=== PATIENT | female | born 1960 ===

== ENCOUNTER 2023-06-05 10:10 | Outpatient (CLI) | payer MEDICARE, SELFPAY | END 2023-06-05 10:11 | disposition home or self-care (01) | LOC: LABBT 10:10 | PROVIDERS: ATTEND Student in an Organized Health Care Education/Training Program | DX: Z01.818 Encounter for other preprocedural examination (principal); I25.10 Atherosclerotic heart disease of native coronary artery without angina pectoris | CPT/HCPCS: 71046 ==

== ENCOUNTER 2023-06-05 10:30 | Inpatient (IN) | payer MEDICARE ==
[2023-06-05 12:30] LABS: Mean Corpuscular HGB CONC 34.1 g/dL (32.0-36.0); Mean Corpuscular Hemoglobin 27.9 pg (27.0-33.0); Mean Corpuscular Volume 81.8 fl (81.6-98.3); Mean Platelet Volume 9.8 fl (7.4-10.4); Platelet Count 335 10x3/uL (150-450); RBC Distribution Width 12.2 % (11.5-14.5); Red Blood Cell (RBC) Count 5.01 10x6/uL (3.90-5.03); White Blood Cell (WBC) Count 6.7 10x3/uL (3.5-10.5)
[2023-06-05 12:37] LABS: INR-International Normal Ratio 0.9; PTT 26.9 sec (22.0-33.0); Prothrombin Time 9.8 sec (9.5-12.1)
[2023-06-05 12:38] LABS: Anion Gap 19 mmol/L (10-20); BUN (Urea Nitrogen) 22 mg/dL (9.8-20.1); Calc. Creatinine Clearance 0 mL/min (70-130); Carbon Dioxide 25 mmol/L (23-31); Chloride 96 mmol/L (98-107); Estimated GFR 49; Glucose 301 mg/dL (80-115); Potassium 4.5 mmol/L (3.5-5.1); Sodium 135 mmol/L (136-145)
[2023-06-08] MEDS ORDERED: EPINEPHrine 1 MG/ML VIAL ONE (08:55)
[2023-06-08] MEDS ORDERED: Dexamethasone 4 mg/ml Vial ONE (08:55)
[2023-06-08] MEDS ORDERED: PHENYLEPHRINE-NS 100 MCG/ML 10 ML SYRINGE ONE ×2 (08:55→09:50)
[2023-06-08] MEDS ORDERED: Bupivacaine PF 0.5% 30 ML VIAL ONE (08:55)
[2023-06-08] MEDS ORDERED: Albumin 5% 500 ML ONE (08:55)
[2023-06-08] MEDS ORDERED: Heparin 10,000 UNITS/1 ML VIAL 30,000 UNITS in Sodium Chloride 0.9% 1,000 ML FS SCH (09:15)
[2023-06-08] MEDS ORDERED: Fentanyl 250 MCG/5 ML VIAL ONE (09:43)
[2023-06-08] MEDS ORDERED: Midazolam HCl 5 mg/ml Vial ONE (09:43)
[2023-06-08] MEDS ORDERED: Insulin Regular 300 UNITS/3 ML VIAL ONE (09:44)
[2023-06-08] MEDS ORDERED: Aminocaproic Acid 5 GM/20 ML VIAL ONE ×2 (09:44→09:50)
[2023-06-08] MEDS ORDERED: Rocuronium Bromide 50 MG/5 ML VIAL ONE (09:44)
[2023-06-08] MEDS ORDERED: Thrombin 5000 UNITS/5 ML VIAL ONE (09:50)
[2023-06-08] MEDS ORDERED: Heparin 5,000 UNITS/ML VIAL ONE (09:50)
[2023-06-08] MEDS ORDERED: Cardioplegic Soln 1,000 ML BAG ONE (09:50)
[2023-06-08] MEDS ORDERED: Papaverine 60 MG/2 ML VIAL ONE (09:50)
[2023-06-08] MEDS ORDERED: Lidocaine 1% PF 5 ML VIAL ONE (09:50)
[2023-06-08] MEDS ORDERED: Calcium Chloride 1 GM/10 ML Abboject SYRINGE ONE (09:50)
[2023-06-08] MEDS ORDERED: Heparin 30,000 units/30 ml VIAL ONE (09:50)
[2023-06-08] MEDS ORDERED: Lidocaine 2% PF 100 mg/5 ml Syringe ONE (09:50)
[2023-06-08] MEDS ORDERED: Mannitol 12.5 GM/50 ML ONE (09:50)
[2023-06-08] MEDS ORDERED: Vancomycin 1 GM VIAL ONE (09:50)
[2023-06-08] MEDS ORDERED: Potassium Chloride 60 MEQ/30 ML VIAL ONE (09:50)
[2023-06-08] MEDS ORDERED: Rocuronium Bromide 10 MG/ML (10ML VIAL) ONE (09:50)
[2023-06-08] MEDS ORDERED: Protamine Sulfate 250 MG/25 ML VIAL ONE (09:50)
[2023-06-08] MEDS ORDERED: Magnesium 5 GM/10 ML VIAL ONE (09:50)
[2023-06-08] MEDS ORDERED: PROPOFOL 200 MG/20 ML VIAL ONE (09:50)
[2023-06-08] MEDS ORDERED: Sodium Bicarb 50 MEQ/50 ML VIAL ONE (09:50)
[2023-06-08] MEDS ORDERED: Acetaminophen 325 MG TAB PO PRN (14:16)
[2023-06-08] MEDS ORDERED: Mag-Al 1200 mg/1200 mg/30 ML UDCUP PO PRN (14:16)
[2023-06-08] MEDS ORDERED: Ondansetron PF 4 MG/2 ML Vial IVP PRN (14:16)
[2023-06-08] MEDS ORDERED: fentaNYL 50 mcg/mL 1 mL Vial SLOW IVP PRN ×2 (14:16)
[2023-06-08] MEDS ORDERED: Bisacodyl 10 MG SUPP PR PRN (14:16)
[2023-06-08] MEDS ORDERED: hydrALAZINE 20 MG/ML VIAL SLOW IVP PRN (14:16)
[2023-06-08] MEDS ORDERED: HYDROcodone/Acetaminophen 5/325 mg Tablet PO PRN ×2 (14:16)
[2023-06-08] MEDS ORDERED: Guaifenesin DM 100-10/5 ML UDCUP PO PRN (14:16)
[2023-06-08] MEDS ORDERED: Post-Op Insulin Drip Protocol IVPB ONE (14:16)
[2023-06-08] MEDS ORDERED: Promethazine HCl 25 MG/ML VIAL IM PRN (14:16)
[2023-06-08] MEDS ORDERED: Bisacodyl 5 MG TAB PO PRN (14:16)
[2023-06-08] MEDS ORDERED: Magnesium 2 GM/50 ML(in water) 2 GM in Premix 1 BAG IVPB SCH (14:30)
[2023-06-08] MEDS ORDERED: HUMULIN R 100 UNITS in Sodium Chloride 0.9% 100 ML IVPB SCH (14:30)
[2023-06-08] MEDS ORDERED: Dextrose 5% in Water 1,000 ML IV PRN (14:30)
[2023-06-08] MEDS ORDERED: Dextrose 50% Abboject 50 ML SYRINGE SLOW IVP PRN (14:30)
[2023-06-08] MEDS ORDERED: Glucagon 1 MG/ML KIT SC PRN (14:30)
[2023-06-08 14:49] LABS: Actual Bicarbonate (HCO3a) 17.7 mEq/L (22-28); Base Excess (BEa) -5.5 mEq/L (-2.0 to +3.0); Calcium, Ionized (arterial) 1.08 mmol/L (1.12-1.30); Carboxyhemoglobin (COHb) 0.3 gm% (0.0-3.0); Hematocrit-ABG 36 % (36.0-47.0); Hemoglobin (Hb) 12.2 g/dL (12.0-16.0); O2 Tension (PaO2), arterial 264.5 mmHg (> 80.0); Potassium - ABG Lab 3.37 mmol/L (3.70-5.30); pH, Arterial 7.418 (7.35-7.45)
[2023-06-08 14:50] LABS: Puncture Site Arterial Line
[2023-06-08] MEDS ORDERED: NOREPINEPHRINE 8 MG/250 ML-D5W 250 ML ONE (14:52)
[2023-06-08] MEDS: NS 0.9% w/ 20 MEQ KCL 1,000 ML IV SCH ×2 (15:02→23:52)
[2023-06-08] MEDS: CEFAZOLIN 2 GM in Sodium Chloride 0.9% 100 ML IVPB SCH ×2 (15:02→21:31)
[2023-06-08] MEDS: Morphine 2 MG/ML VIAL SLOW IVP PRN ×2 (15:04→16:38)
[2023-06-08 15:13] LABS: INR-International Normal Ratio 1.2; Prothrombin Time 15.9 sec (12.0-14.7)
[2023-06-08 15:14] LABS: #Eosinphils 0.2 thou/uL (0.0-0.7); #Monocytes 0.8 thou/uL (0.11-0.59); #Neutrophils 8.4 thou/uL (1.40-6.50); %Basophils 0.4 % (0.0-1.0); %Eosinophils 1.7 % (0.0-10.0); %Lymphocytes 16.4 % (21.0-51.0); %Neutrophils 73.4 % (42.0-75.0); Hematocrit 33.4 % (36.0-47.0); Hemoglobin 11.8 g/dL (12.0-16.0); Mean Corpuscular HGB CONC 35.3 g/dL (32.0-36.0); Mean Corpuscular Volume 82.1 fl (78.0-98.0); Mean Platelet Volume 9.7 fL (7.4-10.4); Platelet Count 181 10x3/uL (130-400); RBC Distribution Width 12.5 % (11.5-14.5); Red Blood Cell (RBC) Count 4.07 mill/uL (4.20-5.40); White Blood Cell (WBC) Count 11.4 10x3/uL (4.8-10.8)
[2023-06-08 15:18] LABS: Anion Gap 13 mmol/L (10-20); BUN (Urea Nitrogen) 23 mg/dL (9.8-20.1); Calc. Creatinine Clearance 55 mL/min (70-130); Calcium 7.9 mg/dL (7.8-10.44); Carbon Dioxide 18 mmol/L (23-31); Chloride 109 mmol/L (98-107); Estimated GFR 81; Glucose 211 mg/dL (80-115); Potassium 3.4 mmol/L (3.5-5.1)
[2023-06-08] MEDS ORDERED: NOREPINEPHRINE 8 MG/250 ML-D5W 250 ML IVPB SCH (15:30)
[2023-06-08 15:39] LABS: Sodium 137 mmol/L (136-145)
[2023-06-08] MEDS: Potassium Chloride 20 MEQ/100 ML PREMIX BAG IVPB PRN ×2 (15:58→21:26)
[2023-06-08] MEDS: Ketorolac Tromethamine 30 MG/ML VIAL IVP SCH ×2 (16:39→23:07)
[2023-06-08] MEDS: Aspirin 325 MG TAB PO SCH (17:41)
[2023-06-08 20:36] LABS: Hematocrit 29.8 % (36.0-47.0); Hemoglobin 10.4 g/dL (12.0-16.0)
[2023-06-08 20:57] LABS: Potassium 3.6 mmol/L (3.5-5.1)
[2023-06-08] MEDS: Famotidine/PF 20 mg/2ml Vial SLOW IVP SCH (21:21)
[2023-06-08 22:13] LABS: Actual Bicarbonate (HCO3a) 16.8 mEq/L (22-28); Base Excess (BEa) -5.5 mEq/L (-2.0 to +3.0); Calcium, Ionized (arterial) 1.09 mmol/L (1.12-1.30); Carboxyhemoglobin (COHb) 0.3 gm% (0.0-3.0); Hematocrit-ABG 32 % (36.0-47.0); O2 Tension (PaO2), arterial 225.6 mmHg (> 80.0); Potassium - ABG Lab 4.47 mmol/L (3.70-5.30); pH, Arterial 7.465 (7.35-7.45)
[2023-06-08 22:14] LABS: Puncture Site ALINE
[2023-06-09 04:31] LABS: #Monocytes 0.8 thou/uL (0.11-0.59); #Neutrophils 7.4 thou/uL (1.40-6.50); %Basophils 0.1 % (0.0-1.0); %Eosinophils 0.1 % (0.0-10.0); %Lymphocytes 6.7 % (21.0-51.0); %Monocytes 8.6 % (0.0-10.0); Hematocrit 28.4 % (36.0-47.0); Hemoglobin 9.7 g/dL (12.0-16.0); Mean Corpuscular HGB CONC 34.2 g/dL (32.0-36.0); Mean Corpuscular Hemoglobin 28.6 pg (27.0-31.0); Mean Corpuscular Volume 83.8 fl (78.0-98.0); Mean Platelet Volume 9.9 fL (7.4-10.4); Platelet Count 165 10x3/uL (130-400); RBC Distribution Width 13.1 % (11.5-14.5); Red Blood Cell (RBC) Count 3.39 mill/uL (4.20-5.40); White Blood Cell (WBC) Count 8.8 10x3/uL (4.8-10.8)
[2023-06-09 04:51] LABS: Anion Gap 12 mmol/L (10-20); BUN (Urea Nitrogen) 20 mg/dL (9.8-20.1); Calc. Creatinine Clearance 60 mL/min (70-130); Calcium 7.9 mg/dL (7.8-10.44); Carbon Dioxide 20 mmol/L (23-31); Chloride 112 mmol/L (98-107); Estimated GFR 90; Glucose 99 mg/dL (80-115); Potassium 4.3 mmol/L (3.5-5.1); Sodium 140 mmol/L (136-145)
[2023-06-09] MEDS: Ketorolac Tromethamine 30 MG/ML VIAL IVP SCH ×4 (05:14→23:32)
[2023-06-09] MEDS: CEFAZOLIN 2 GM in Sodium Chloride 0.9% 100 ML IVPB SCH (06:40)
[2023-06-09] MEDS: Insulin Regular 300 UNITS/3 ML VIAL SC PRN (07:49)
[2023-06-09] MEDS: Famotidine/PF 20 mg/2ml Vial SLOW IVP SCH (08:42)
[2023-06-09] MEDS: Heparin 5,000 UNITS/ML VIAL SC SCH ×3 (08:44→21:23)
[2023-06-09] MEDS: Magnesium 2 GM/50 ML(in water) 2 GM in Premix 1 BAG IVPB SCH (09:10)
[2023-06-09] MEDS ORDERED: Insulin Glargine 30 UNITS/0.3 ML VIAL SC SCH (13:45)
[2023-06-09] MEDS: Aspirin 325 MG TAB PO SCH (18:19)
[2023-06-09] MEDS: Famotidine 20 MG TAB PO SCH (21:24)
[2023-06-09] MEDS: Atorvastatin Calcium 40 MG TAB PO SCH (21:24)
[2023-06-10 05:11] LABS: #Eosinphils 0.1 thou/uL (0.0-0.7); #Monocytes 1.2 thou/uL (0.11-0.59); #Neutrophils 6.5 thou/uL (1.40-6.50); %Basophils 0.3 % (0.0-1.0); %Eosinophils 0.6 % (0.0-10.0); %Lymphocytes 21.3 % (21.0-51.0); %Monocytes 11.9 % (0.0-10.0); %Neutrophils 65.6 % (42.0-75.0); Hematocrit 26.8 % (36.0-47.0); Hemoglobin 8.9 g/dL (12.0-16.0); Mean Corpuscular HGB CONC 33.2 g/dL (32.0-36.0); Mean Corpuscular Hemoglobin 28.5 pg (27.0-31.0); Mean Corpuscular Volume 85.9 fl (78.0-98.0); Mean Platelet Volume 10.7 fL (7.4-10.4); Platelet Count 171 10x3/uL (130-400); RBC Distribution Width 13.5 % (11.5-14.5); Red Blood Cell (RBC) Count 3.12 mill/uL (4.20-5.40); White Blood Cell (WBC) Count 9.9 10x3/uL (4.8-10.8)
[2023-06-10 05:33] LABS: Anion Gap 12 mmol/L (10-20); BUN (Urea Nitrogen) 16 mg/dL (9.8-20.1); Calc. Creatinine Clearance 57 mL/min (70-130); Calcium 8.4 mg/dL (7.8-10.44); Carbon Dioxide 22 mmol/L (23-31); Chloride 108 mmol/L (98-107); Estimated GFR 86; Glucose 97 mg/dL (80-115); Potassium 4.4 mmol/L (3.5-5.1); Sodium 138 mmol/L (136-145)
[2023-06-10] MEDS: Ketorolac Tromethamine 30 MG/ML VIAL IVP SCH ×3 (06:27→16:13)
[2023-06-10] MEDS: Magnesium 2 GM/50 ML(in water) 2 GM in Premix 1 BAG IVPB SCH (08:21)
[2023-06-10] MEDS: Heparin 5,000 UNITS/ML VIAL SC SCH ×3 (08:31→21:43)
[2023-06-10] MEDS: Famotidine 20 MG TAB PO SCH ×2 (08:32→21:43)
[2023-06-10 11:12] VITALS: BMI 22.7
[2023-06-10] MEDS: Aspirin 325 MG TAB PO SCH (16:13)
[2023-06-10] MEDS: Atorvastatin Calcium 40 MG TAB PO SCH (21:42)
[2023-06-11] MEDS: Ketorolac Tromethamine 30 MG/ML VIAL IVP SCH ×4 (01:02→17:40)
[2023-06-11 04:56] LABS: #Eosinphils 0.1 thou/uL (0.0-0.7); #Monocytes 0.8 thou/uL (0.11-0.59); %Basophils 0.1 % (0.0-1.0); %Eosinophils 1.5 % (0.0-10.0); %Lymphocytes 21.9 % (21.0-51.0); %Neutrophils 65.8 % (42.0-75.0); Hematocrit 25.4 % (36.0-47.0); Hemoglobin 8.4 g/dL (12.0-16.0); Mean Corpuscular HGB CONC 33.1 g/dL (32.0-36.0); Mean Corpuscular Hemoglobin 28.1 pg (27.0-31.0); Mean Corpuscular Volume 84.9 fl (78.0-98.0); Mean Platelet Volume 10.3 fL (7.4-10.4); Platelet Count 161 10x3/uL (130-400); Red Blood Cell (RBC) Count 2.99 mill/uL (4.20-5.40); White Blood Cell (WBC) Count 7.6 10x3/uL (4.8-10.8)
[2023-06-11 05:32] LABS: Anion Gap 12 mmol/L (10-20); BUN (Urea Nitrogen) 19 mg/dL (9.8-20.1); Calc. Creatinine Clearance 60 mL/min (70-130); Calcium 8.5 mg/dL (7.8-10.44); Carbon Dioxide 24 mmol/L (23-31); Chloride 108 mmol/L (98-107); Estimated GFR 78; Glucose 227 mg/dL (80-115); Potassium 4.7 mmol/L (3.5-5.1); Sodium 139 mmol/L (136-145)
[2023-06-11] MEDS: Insulin Regular 300 UNITS/3 ML VIAL SC PRN ×3 (06:20→20:55)
[2023-06-11] MEDS ORDERED: Furosemide 40 MG/4 ML VIAL SLOW IVP SCH (08:30)
[2023-06-11] MEDS: Heparin 5,000 UNITS/ML VIAL SC SCH ×3 (08:51→20:55)
[2023-06-11] MEDS: Famotidine 20 MG TAB PO SCH ×2 (08:51→20:54)
[2023-06-11] MEDS ORDERED: Magnesium Sulfate 4 GM in Sodium Chloride 0.9% 250 ML 250 ML IVPB SCH (11:15)
[2023-06-11] MEDS ORDERED: Magnesium Sulfate In Water 4 GM in Premix 1 BAG IVPB SCH (11:30)
[2023-06-11] MEDS ORDERED: DULoxetine 30 MG CAP PO SCH (12:00)
[2023-06-11] MEDS: Aspirin 325 MG TAB PO SCH (17:40)
[2023-06-11] MEDS: Ivabradine 5 MG TAB PO SCH (20:54)
[2023-06-11] MEDS: Atorvastatin Calcium 40 MG TAB PO SCH (20:54)
[2023-06-11] MEDS ORDERED: Metoprolol Tartrate 25 MG TAB PO SCH (21:00)
[2023-06-12] MEDS ORDERED: DULoxetine 30 MG CAP PO SCH (09:00)
[2023-06-12] MEDS ORDERED: Potassium Chloride 20 MEQ TAB PO SCH ×2 (09:07→09:30)
[2023-06-12] MEDS ORDERED: Furosemide 20 MG TAB PO SCH ×2 (09:07→09:30)
[2023-06-12] MEDS: Ivabradine 5 MG TAB PO SCH (09:29)
[2023-06-12] MEDS: Heparin 5,000 UNITS/ML VIAL SC SCH (09:30)
[2023-06-12] MEDS: Famotidine 20 MG TAB PO SCH (09:30)
[2023-06-12 10:22] LABS: CO2 Tension 23.9 mmHg (35.0-45.0)
[2023-06-12 12:01] VITALS: TEMP 98.4
[2023-06-12 12:05] VITALS: BP 112/55
[2023-06-13] MEDS ORDERED: Potassium Chloride 20 MEQ TAB PO SCH (08:00)
[2023-06-13] MEDS ORDERED: Furosemide 20 MG TAB PO SCH ×2 (09:00)
== END 2023-06-12 14:00 | disposition home or self-care (01) | DRG 236 ==
LOC: SURG A 06-08 07:07 → CCU 06-08 14:18 → 2NO 06-10 14:04
PROVIDERS: ADMIT Student in an Organized Health Care Education/Training Program; ATTEND Student in an Organized Health Care Education/Training Program
PROC: 02100Z9 Bypass Coronary Artery, One Artery from Left Internal Mammary, Open Approach (ICD-10-PCS; principal; 2023-06-08)
PROC: 021209W Bypass Coronary Artery, Three Arteries from Aorta with Autologous Venous Tissue, Open Approach (ICD-10-PCS; 2023-06-08)
PROC: 06BP4ZZ Excision of Right Saphenous Vein, Percutaneous Endoscopic Approach (ICD-10-PCS; 2023-06-08)
PROC: 06BQ0ZZ Excision of Left Saphenous Vein, Open Approach (ICD-10-PCS; 2023-06-08)
PROC: 5A1221Z Performance of Cardiac Output, Continuous (ICD-10-PCS; 2023-06-08)
PROC: 02L70CK Occlusion of Left Atrial Appendage with Extraluminal Device, Open Approach (ICD-10-PCS; 2023-06-08)
PROC: 02H633Z Insertion of Infusion Device into Right Atrium, Percutaneous Approach (ICD-10-PCS; 2023-06-08)
PROC: 30233N1 Transfusion of Nonautologous Red Blood Cells into Peripheral Vein, Percutaneous Approach (ICD-10-PCS; 2023-06-08)
PROC: 4A133R1 Monitoring of Arterial Saturation, Peripheral, Percutaneous Approach (ICD-10-PCS; 2023-06-08)
PROC: 30233J1 Transfusion of Nonautologous Serum Albumin into Peripheral Vein, Percutaneous Approach (ICD-10-PCS; 2023-06-08)
PROC: 3E033XZ Introduction of Vasopressor into Peripheral Vein, Percutaneous Approach (ICD-10-PCS; 2023-06-08)
DX: I25.110 Atherosclerotic heart disease of native coronary artery with unstable angina pectoris (principal); D62 Acute posthemorrhagic anemia; F05 Delirium due to known physiological condition; F32.A Depression, unspecified; E11.9 Type 2 diabetes mellitus without complications; E78.5 Hyperlipidemia, unspecified; I10 Essential (primary) hypertension; Z79.84 Long term (current) use of oral hypoglycemic drugs; Z79.899 Other long term (current) drug therapy; Z79.82 Long term (current) use of aspirin; Z98.890 Other specified postprocedural states
CPT/HCPCS: 36415; 36416; 36430; 71045; 80048; 82805; 85025; 85027; 85610; 85730; 86850; 86900; 86901; 93005; 93010; 93798; 94002; A4311; C1751; J0171; J1100; J1642; J1644; J1815; J1885; J1940; J2001; J2150; J2250; J2272; J2440; J2704; J2720; J3010; J3370; J3475; J3480; J3490; J7999; P9016; P9045; S0017; S0020; S0028